=== PATIENT | female | born 1945 | race Caucasian/White ===

== ENCOUNTER 2018-07-27 17:23 | Emergency (ER) | payer MEDICARE, OTHER ==
[~2018-07-27] VITALS: Ht 154.9 cm; Wt 74.4 kg
[2018-07-27] MEDS ORDERED: COREG6.25 MG PO (17:36)
[2018-07-27] MEDS ORDERED: PIOGLITAZONE15 MG (17:36)
[2018-07-27] MEDS ORDERED: METFORMIN HCL500 MG PO (17:36)
[2018-07-27 20:05] VITALS: BP 143/80
== END 2018-07-27 20:09 | disposition home or self-care (01) ==
LOC: M.ERS 17:23
DX: S43.014A Anterior dislocation of right humerus, initial encounter (principal); S90.01XA Contusion of right ankle, initial encounter; S50.01XA Contusion of right elbow, initial encounter; S63.501A Unspecified sprain of right wrist, initial encounter; Z88.2 Allergy status to sulfonamides; Z88.1 Allergy status to other antibiotic agents; Z96.651 Presence of right artificial knee joint; W18.39XA Other fall on same level, initial encounter; Y93.89 Activity, other specified; Y92.89 Other specified places as the place of occurrence of the external cause; Y99.8 Other external cause status